=== PATIENT | male | born 1950 | race African-American/Black ===

== ENCOUNTER 2017-11-01 07:02 | Emergency (ER) | payer MEDICARE, MEDICAID ==
[~2017-11-01] VITALS: Ht 182.9 cm; Wt 98.1 kg
[2017-11-01 07:38] LABS: EOSINOPHILS % 4.5 % (0.0-5.0); HEMATOCRIT. 40.9 % (42.0-52.0); HEMOGLOBIN. 13.8 g/dL (14.0-18.0); LYMPHOCYTES % 41.5 % (20.0-50.0); MEAN CORPUSCULAR HEMOGLOBIN 28.3 pg (28.0-32.0); MEAN CORPUSCULAR VOLUME 83.7 fL (80.0-94.0); MEAN PLATELET VOLUME 8.8 fl (7.4-10.4); MONOCYTES % 11.6 % (2.0-8.0); NEUTROPHILS % 41.4 % (40.0-76.0); PLATELET 158 x1000/uL (130-400); RED BLOOD CELL COUNT 4.88 mill/uL (4.7-6.1); RED CELL DISTRIBUTION WIDTH 15.3 % (11.6-14.6)
[2017-11-01 07:39] LABS: CHLORIDE 107 mEq/L (98-107)
[2017-11-01 07:44] LABS: ETHANOL BLOOD < 10 mg/dL
[2017-11-01 07:56] LABS: PROTHROMBIN TIME 10.8 sec (9.4-11.6)
[2017-11-01] MEDS ORDERED: DEXAMETHASONE 10 MG/ML VIAL IV ONE (08:00)
[2017-11-01] MEDS ORDERED: LEVETIRACETAM 1000MG/100ML 100 ML IV ONE (08:00)
[2017-11-01 09:17] LABS: CLARITY URINE CLEAR (CLEAR); COLOR URINE YELLOW (YELLOW); KETONES URINE NEGATIVE (NEGATIVE); LEUKOCYTE ESTERASE URINE NEGATIVE (NEGATIVE); NITRITE URINE NEGATIVE (NEGATIVE); OCCULT BLOOD URINE NEGATIVE (NEGATIVE); PH URINE 7.5 (4.5-8.0); PROTEIN URINE NEGATIVE (NEGATIVE); SPECIFIC GRAVITY URINE 1.014 (1.005-1.030)
[2017-11-01 09:35] LABS: *BENZODIAZEPINES SCREEN URINE PRESUMTIVE POSITIVE (NEGATIVE); *COCAINE SCREEN URINE NEGATIVE (NEGATIVE)
[2017-11-01 09:36] LABS: *AMPHETAMINES SCREEN URINE NEGATIVE (NEGATIVE); *BARBITURATES SCREEN URINE NEGATIVE (NEGATIVE); CANNABINOID URINE SCREEN PRESUMTIVE POSITIVE (NEGATIVE); METHADONE URINE SCREEN NEGATIVE (NEGATIVE); OPIATES URINE SCREEN NEGATIVE (NEGATIVE); PHENCYCLIDINE URINE SCREEN NEGATIVE (NEGATIVE)
[2017-11-01 14:03] VITALS: BP 151/90
== END 2017-11-01 15:54 | disposition left against medical advice (07) ==
LOC: ER 07:02 → CANBEDREQ 15:48 → ER 15:54
DX: C71.3 Malignant neoplasm of parietal lobe (principal); R56.9 Unspecified convulsions; E11.9 Type 2 diabetes mellitus without complications; R79.1 Abnormal coagulation profile; R47.01 Aphasia; R29.810 Facial weakness
CPT/HCPCS: 36415; 70450; 70553; 71045; 80053; 80305; 81003; 82962; 84484; 85025; 85610; 96365; 96375; 99285; G0482; J1100; J1953